=== PATIENT | female | born 1985 | race Caucasian/White ===

== ENCOUNTER 2018-07-19 21:39 | Emergency (ER) | payer SELFPAY ==
[2018-07-19 21:51] VITALS: BP 146/102
--- NOTE | 2018-07-19 22:20 | ER Report ---
History and Physical Time Seen By MD: 22:20 Hx. of Stated Complaint: PT REPORTS RIGHT SIDED FACIAL SWELLING THAT STARTED WHEN SHE WOKE UP THIS MORNING. HPI/ROS CHIEF COMPLAINT: facial swelling right cheek HISTORY OF PRESENT ILLNESS: This is a 33 year old female. She is having swelling on right cheek that started this morning. Increasing through the day. Has associated sinus pain. No vision changes, but swelling is now up in the area of the eye as well. No eye pain or vision changes. Has no known dental issues. No i njuries. No wounds in the skin. No fevers today, but feeling a little chilled at times. She is frightened because of the speed of these changes. No chest pain or shortness of breath. No nausea or vomiting. Allergies: Coded Allergies: No Known Drug Allergies (Unverified , 07/19/18) Home Meds Active Scripts Hydrocodone Bit/Acetaminophen (HYDROCODON-ACETAMINOPHEN 5-325) 1 Each Tablet, 1 EACH PO Q4H PRN for PAIN, #10 TAB 0 Refills Prov:HUNTER REID MD 07/20/18 Prednisone (PREDNISONE) 20 Mg Tablet, 40 MG PO QDAY, #8 TAB 0 Refills Prov:HUNTER REID MD 07/20/18 Amoxicillin/Pot Clav 875-125 Mg Tab (AUGMENTIN 875-125 TABLET) 1 Each Tablet, 1 TAB PO Q12H, #14 TAB 0 Refills Prov:HUNTER REID MD 07/20/18 Clindamycin Hcl (CLINDAMYCIN HCL) 300 Mg Capsule, 300 MG PO Q6H, #28 CAPSULE 0 Refills Prov:HUNTER REID MD 07/20/18 Reviewed Nurses Notes: Yes Hx Substance Use Disorder: No Hx Alcohol Use: No Constitutional Vital Sign - Last 24 Hours 07/19/18 07/19/18 07/19/18 07/19/18 21:49 21:51 21:54 22:09 Temp 98.8 Pulse 97 98 90 Resp 14 B/P (MAP) 146/102 (117) 146/102 Pulse Ox 92 91 95 O2 Delivery Room Air 07/19/18 07/19/18 07/19/18 07/19/18 22:24 22:39 22:54 23:09 Pulse 78 81 86 82 Pulse Ox 94 94 94 94 5/1807/19/18 07/19/18 07/20/18 23:24 23:30 23:45 00:15 Pulse 74 78 83 77 Pulse Ox 95 94 92 92 07/20/18 07/20/18 07/20/18 07/20/18 00:30 00:45 00:50 01:05 Pulse 75 66 86 68 Pulse Ox 88 87 90 89 07/20/18 07/20/18 07/20/18 07/20/18 01:35 01:50 02:05 02:20 Pulse 67 69 65 65 Pulse Ox 90 92 94 94 07/20/18 07/20/18 07/20/18 07/20/18 02:35 02:40 02:55 03:10 Pulse 71 76 82 Pulse Ox 91 95 94 96 Physical Exam General Appearance: The patient is alert. Acute distress and anxiety because of symptoms. Eyes: Pupils are equal, round. Reactive to light. No pallor, injection or icteru s. Extraocular movements are intact. ENT: Mucous membranes are moist. Normal oral mucosa. Posterior oropharynx is normal. Normal nasal mucosa. Normal tympanic membranes and canals. No dental changes. Normal feeling parotid gland. Diffuse pain. Neck: Supple and non tender. Respiratory: Lungs are clear to auscultation. Cardiovascular: Regular rate and rhythm. No murmurs, gallops or rubs. Normal capillary refill. Gastrointestinal: Abdomen is soft and non tender. Nondistended. Normal active bowel sounds. Neurological: Alert and oriented x3. Cranial nerves II through XII show no acute deficits on my exam. No focal neurologic deficits in the extremities. Skin: Warm and dry. Swelling and warmth to right cheek. Do not see any area of skin breakdown. DIFFERENTIAL DIAGNOSIS: After history and physical exam, differential diagnosis was considered for patient with swelling of right face/cheek area, consider parotitis, stone, dental infection, sinus disease, cellulitis. NO signs at this time of orbital cellulitis. Medical Decision Making Data Points Result Diagram: 07/19/18232207/19/182322 Laboratory Hematology Test 07/19/18 23:23 Red Blood Count 4.79 M/uL (4.17-5.56) Mean Corpuscular Volume 87.9 fL (80.0-96.0) Mean Corpuscular Hemoglobin 29.7 pg (26.0-33.0) Mean Corpuscular Hemoglobin Concent 33.8 g/dL (32.0-36.0) Red Cell Distribution Width 13.5 % (11.5-14.5) Mean Platelet Volume 7.7 fL (7.2-11.1) Neutrophils (%) (Auto) 68.6 % (39.4-72.5) Lymphocytes (%) (Auto) 24.1 % (17.6-49.6) Monocytes (%) (Auto) 5.5 % (4.1-12.4) Eosinophils (%) (Auto) 1.1 % (0.4-6.7) Basophils (%) (Auto) 0.7 % (0.3-1.4) Nucleated RBC Relative Count (auto) 0.0 /100WBC Neutrophils # (Auto) 7.1 K/uL (2.0-7.4) Lymphocytes # (Auto) 2.5 K/uL (1.3-3.6) Monocytes # (Auto) 0.6 K/uL (0.3-1.0) Eosinophils # (Auto) 0.1 K/uL (0.0-0.5) Basophils # (Auto) 0.1 K/uL (0.0-0.1) Nucleated RBC Absolute Count (auto) 0.00 K/uL Erythrocyte Sedimentation Rate 20 mm/HOUR (0-20) Sodium Level 140 mmol/L (137-145) Potassium Level 3.6 mmol/L (3.5-5.0) Chloride Level 108 mmol/L (98-107) Carbon Dioxide Level 24 mmol/L (22-31) Blood Urea Nitrogen 13 mg/dl (7-18) Creatinine 0.70 mg/dl (0.52-1.04) Glomerular Filtration Rate Calc > 60.0 Random Glucose 99 mg/dl (75-110) Calcium Level 8.8 mg/dl (8.4-10.2) Total Bilirubin 0.2 mg/dl (0.2-1.3) Aspartate Amino Transf (AST/SGOT) 17 U/L (0-35) Alanine Aminotransferase (ALT/SGPT) 17 U/L (0-56) Alkaline Phosphatase 85 U/L (0-126) Total Protein 7.6 g/dl (6.3-8.2) Albumin 4.1 g/dl (3.5-5.0) Chemistry Test 07/19/18 23:23 White Blood Count 10.4 k/uL (4.5-11.0) Red Blood Count 4.79 M/uL (4.17-5.56) Hemoglobin 14.2 g/dL (12.0-16.0) Hematocrit 42.1 % (34.0-47.0) Mean Corpuscular Volume 87.9 fL (80.0-96.0) Mean Corpuscular Hemoglobin 29.7 pg (26.0-33.0) Mean Corpuscular Hemoglobin Concent 33.8 g/dL (32.0-36.0) Red Cell Distribution Width 13.5 % (11.5-14.5) Platelet Count 285 K/uL (150-450) Mean Platelet Volume 7.7 fL (7.2-11.1) Neutrophils (%) (Auto) 68.6 % (39.4-72.5) Lymphocytes (%) (Auto) 24.1 % (17.6-49.6) Monocytes (%) (Auto) 5.5 % (4.1-12.4) Eosinophils (%) (Auto) 1.1 % (0.4-6.7) Basophils (%) (Auto) 0.7 % (0.3-1.4) Nucleated RBC Relative Count (auto) 0.0 /100WBC Neutrophils # (Auto) 7.1 K/uL (2.0-7.4) Lymphocytes # (Auto) 2.5 K/uL (1.3-3.6) Monocytes # (Auto) 0.6 K/uL (0.3-1.0) Eosinophils # (Auto) 0.1 K/uL (0.0-0.5) Basophils # (Auto) 0.1 K/uL (0.0-0.1) Nucleated RBC Absolute Count (auto) 0.00 K/uL Erythrocyte Sedimentation Rate 20 mm/HOUR (0-20) Glomerular Filtration Rate Calc > 60.0 Calcium Level 8.8 mg/dl (8.4-10.2) Total Bilirubin 0.2 mg/dl (0.2-1.3) Aspartate Amino Transf (AST/SGOT) 17 U/L (0-35) Alanine Aminotransferase (ALT/SGPT) 17 U/L (0-56) Alkaline Phosphatase 85 U/L (0-126) Total Protein 7.6 g/dl (6.3-8.2) Albumin 4.1 g/dl (3.5-5.0) Microbiology Microbiology Date/Time Source Procedure Growth Status 07/20/18 00:20 Blood Blood Culture - Preliminary NO GROWTH SO FAR, SET LATE. REINCUBATED Resulted 07/19/18 23:23 Blood Blood Culture - Preliminary NO GROWTH AFTER 1 DAY, REINCUBATED Resulted EKG/Imaging Imaging CT of the facial bones and orbits, with contrast: HISTORY: Facial swelling TECHNIQUE: Helical CT was performed following IV contrast enhancement with 75 cc of Isovue-370. Multiplanar reconstructions are reviewed. One of the following dose optimization techniques was utilized in the performance of this exam: Automated exposure control; adjustment of the mA and/or kV according to the patient's size; or use of an iterative reconstruction technique. Specific details can be referenced in the facility's radiology CT exam operational policy. COMPARISON: None available. FINDINGS: Osseous structures: Well mineralized and intact. No evidence of fracture or focal skeletal deformity. Soft Tissues: Asymmetrical soft tissue swelling is observed around the right side of the face and right orbit. No circumscribed fluid collection is identified. There is no evidence of gas or foreign body in the soft tissues. The submandibular and parotid glands appear symmetrical and unremarkable. Orbits: The optic globes, optic nerves, and extraocular muscles appear symmetrical and unremarkable. There are no signs of retro-orbital inflammation or fluid. Sinuses and mastoids: There is minimal mucosal thickening in the right maxillary sinus. There is no free fluid or soft tissue mass. The paranasal sinuses and mastoid air cells are otherwise clear and unremarkable. IMPRESSION: There is asymmetrical soft tissue swelling around the right side of the face and right orbit. No circumscribed fluid collection is identified. There is no evidence of gas or foreign body. The skeletal structures appear intact and unremarkable. Report Dictated By: Yair Perkins MD at 07/20/2018 12:46 AM ED Course/Re-evaluation Clinical Indication for ER IV: Hydration, IV Access ED Course Given Decadron and Dilaudid to help with swelling and pain. CT scan obtained. Swelling is reducing. Looks like cellulitis, started IV Rocephin, continued with Clindamycin and Augmentin to cover for any advance to a preseptal cellulitis, although no evidence of this at this time. Continue with Prednisone and with so me Lortab for pain. Significan improvement and discharged home. Decision to Disposition Date: July 20, 2018 Decision to Disposition Time: 03:02 Depart Departure Latest Vital Signs Vital Signs Date Time Temp Pulse Resp B/P (MAP) Pulse Ox O2 Delivery O2 Flow Rate FiO2 07/20/18 03:10 82 96 07/19/18 21:51 98.8 14 146/102 Room Air Impression: Primary Impression: Facial cellulitis Condition: Improved Disposition: HOME OR SELF-CARE New Scripts Hydrocodone Bit/Acetaminophen (HYDROCODON-ACETAMINOPHEN 5-325) 1 Each Tablet 1 EACH PO Q4H PRN for PAIN, #10 TAB 0 Refills Prov: HUNTER REID MD 07/20/18 Prednisone (PREDNISONE) 20 Mg Tablet 40 MG PO QDAY, #8 TAB 0 Refills Prov: HUTNER REID MD 07/20/18 Amoxicillin/Pot Clav 875-125 Mg Tab (AUGMENTIN 875-125 TABLET) 1 Each Tablet 1 TAB PO Q12H, #14 TAB 0 Refills Prov: HUNTER REID MD 07/20/18 Clindamycin Hcl (CLINDAMYCIN HCL) 300 Mg Capsule 300 MG PO Q6H, #28 CAPSULE 0 Refills Prov: HUNTER REID MD 07/20/18 Patient Instructions: Cellulitis (ED) Additional Instructions: You have and infection of the skin causing your swelling and pain. Take the following 2 antibiotics to cover for bacteria that we would worry about in this area: Clindamycin 300mg capsules 4 times a day for 7 days. Augmentin 875/125 twice a day for 7 days. Take the steroid Prednisone 20mg, 2 tablets once a day for 4 days. Follow-up with your regular doctor this week for re-evaluation. Take Lortab 5/325, one every 4 hours as needed for pain. HUNTER REID MD July 19, 2018 22:20
[2018-07-19] MEDS ORDERED: HYDROMORPHONE HCL 1 MG/ML SYRINGE IVP ONE (23:10)
[2018-07-19] MEDS ORDERED: DEXAMETHASONE SOD PHOS 10MG/ML IVP ONE (23:10)
[2018-07-19 23:34] LABS: PLATELET COUNT, AUTOMATED 285 K/uL (150-450)
[2018-07-20] MEDS ORDERED: IOPAMIDOL 76% 100 ML INFUS BTL 100 ML ONE (00:04)
--- NOTE | 2018-07-20 00:59 | RADIOLOGY IMAGING REPORT ---
FACILITY: [facility] PATIENT NAME: Emilee Moore : 1985 MR: [id number] V: [id number] EXAM DATE: ORDERING PHYSICIAN: HUNTER REID TECHNOLOGIST: Location: [facility] Patient: Emilee Moore : 1985 Visit/Account:[id number] Date of Sevice: 07/19/2018 CT of the facial bones and orbits, with contrast: HISTORY: Facial swelling TECHNIQUE: Helical CT was performed following IV contrast enhancement with 75 cc of Isovue-370. Multi planar reconstructions are reviewed. One of the following dose optimization techniques was utilized in the performance of this exam: Autom ated exposure control; adjustment of the mA and/or kV according to the patient's size; or use of an i terative reconstruction technique. Specific details can be referenced in the facility's radiology CT exam operational policy. COMPARISON: None available. FINDINGS: Osseous structures: Well mineralized and intact. No evidence of fracture or focal skeletal deformity. Soft Tissues: Asymmetrical soft tissue swelling is observed around the right side of the face and rig ht orbit. No circumscribed fluid collection is identified. There is no evidence of gas or foreign bod y in the soft tissues. The submandibular and parotid glands appear symmetrical and unremarkable. Orbits: The optic globes, optic nerves, and extraocular muscles appear symmetrical and unremarkable. There are no signs of retro-orbital inflammation or fluid. Sinuses and mastoids: There is minimal mucosal thickening in the right maxillary sinus. There is no f ree fluid or soft tissue mass. The paranasal sinuses and mastoid air cells are otherwise clear and un remarkable. IMPRESSION: There is asymmetrical soft tissue swelling around the right side of the face and right or bit. No circumscribed fluid collection is identified. There is no evidence of gas or foreign body. Th e skeletal structures appear intact and unremarkable. Report Dictated By: Yair Perkins MD at 07/20/2018 12:46 AM Report E-Signed By: Yair Perkins MD at 07/20/2018 12:56 AM WSN:[id number]
[2018-07-20] MEDS ORDERED: cefTRIAXone 1 GM VIAL IVP ONE (01:05)
[2018-07-20] MEDS ORDERED: diphenhydrAMINE 50 MG/ML VIAL IVP ONE (01:05)
[2018-07-20] MEDS ORDERED: AMOX/CLAV 875 MG TAB PO ONE (02:45)
[2018-07-20] MEDS ORDERED: predniSONE 20 MG TAB PO ONE (02:45)
[2018-07-20] MEDS ORDERED: CLINDAMYCIN 150 MG CAP PO ONE (02:45)
[2018-07-20] MEDS ORDERED: CLIN300C99 PO (03:04)
[2018-07-20] MEDS ORDERED: PRED20TA6 PO (03:04)
[2018-07-20] MEDS ORDERED: AMOX-559 PO (03:04)
[2018-07-20] MEDS ORDERED: LOR5/325 PO (03:06)
[2018-07-20] MEDS ORDERED: ACET/HYDROC 5/325MG TH ER ONLY 2 TAB/BOTTLE PO ONE (03:10)
== END 2018-07-20 03:20 | disposition home or self-care (01) ==
LOC: EDSEX 21:59 → ER 21:59
DX: L03.211 Cellulitis of face (principal)
CPT/HCPCS: 36415; 70487; 85025; 85651; 87040; 96374; 96375; 99284; J0696; J1100; J1170; J1200; J7512; Q9967; 82040; 82247; 82310; 82374; 82435; 82565; 82947; 84075; 84132; 84155; 84295; 84450; 84460; 84520